=== PATIENT | male | born 1975 | race Hispanic/Latino ===

== ENCOUNTER 2024-06-29 17:48 | Emergency (ER) | payer OTHER ==
[2024-06-29] MEDS ORDERED: HYDROcodone/Acetaminophen 10/325 mg Tablet ONE (18:17)
[2024-06-29] MEDS ORDERED: Ibuprofen 800 MG TAB ONE (18:17)
== END 2024-06-29 19:48 | disposition home or self-care (01) ==
LOC: MADERS 17:48
DX: S32.018A Other fracture of first lumbar vertebra, initial encounter for closed fracture (principal); W18.2XXA Fall in (into) shower or empty bathtub, initial encounter
CPT/HCPCS: 72131